=== PATIENT | female | born 2000 | race Caucasian/White ===

== ENCOUNTER 2022-04-02 09:49 | Outpatient (CLI) | payer OTHER, SELFPAY ==
[2022-04-02 11:07] LABS: Beta HCG Quantitative < 2.39 mIU/ML
== END 2022-04-02 09:50 | disposition home or self-care (01) ==
LOC: ANHLAB 10:01
DX: N92.5 Other specified irregular menstruation (principal)
CPT/HCPCS: 36415; 84702